=== PATIENT | male | born 1940 | race Two or more races ===

== ENCOUNTER → 2019-05-06 | Outpatient (CLI) | payer MEDICARE, OTHER ==
--- NOTE | 2019-05-09 10:06 | XCELERA REPORT ---
[address] [address] Lower Extremity Arterial Evaluation Name: LEONCIO FUNG Age: 79 yrs Gender: Male : 1940 Patient Status: Outpatient Patient Location: Study Date: 05/06/2019 02:35 PM Procedure: A color flow and duplex scan of the lower extremity arteries was performed bilaterally with velocity and waveform anaylsis. Reason For Study: RT FOOT ULCER Ordering Physician: ALLYSSA ASCENCIO Performed By: Benny Vasquez Measurements and Calculations Right Left MOLD WORKER PSV 72.7 74.6 cm/sec Prox PFA PSV -67.2 -99.8 cm/sec Prox SFA PSV 48.8 48.3 cm/sec Mid SFA PSV -48.6 -59.0 cm/sec Dist SFA PSV -53.1 -61.1 cm/sec Prox Pop A PSV 31.9 28.3 cm/sec Dist WILFREDO PSV 21.8 22.2 cm/sec Prox NURSING HOME MANAGER PSV 28.1 cm/sec Mid NURSING HOME MANAGER PSV -6.1 cm/sec Dist NURSING HOME MANAGER PSV 31.2 16.9 cm/sec Gamaliel Pedis PSV 11.0 39.0 cm/sec Right Side Arterial Evaluation Normal velocity and triphasic waveforms noted from the Common Femoral artery to the Posterior Tibial artery . Biphasic with low velocity, spectral broadening in the Anterior Tibial and Dorsalis Pedis arteries. Ankle Brachial index not requested. Left Side Arterial Evaluation Normal velocity and triphasic waveforms noted from the Common Femoral artery to the Popliteal artery . Biphasic with low velocity, spectral broadening in the Anterior Tibial and Posterior Tibial arteries. In addition, flow in the distal Posterior Tibial is reversed. No focal stenosis or obstruction is identified. Ankle Brachial index not requested. Interpretation Summary Mild hemodynamically significant lesions in the right lower extremity only, on duplex imaging, at rest. Moderate hemodynamically significant lesions in the left lower extremity only, on duplex imaging, at rest. Arterial compromise is noted in the Anterior Tibial on the right, In both Anterior and Posterior Tibial on the left. Reversal of flow in the left Posterior tibial suggests an obstruction with collateral reconstitution, although no focus of obstruction is seen. : ALLYSSA ASCENCIO > Antelmo Laguerre
== END ==
LOC: SP 13:31
PROVIDERS: ATTEND Preventive Medicine Undersea and Hyperbaric Medicine
DX: L97.512 Non-pressure chronic ulcer of other part of right foot with fat layer exposed (principal)
CPT/HCPCS: 93925

== ENCOUNTER 2020-03-30 01:14 | Emergency (ER) | payer MEDICARE, OTHER ==
[~2020-03-30 01:14] MED LIST: ETOMIDATE INJ/PF 20 MG/10 ML SDV IV ONE; SUCCINYLCHOLINE CHLORIDE INJ 200 MG/10 ML VIAL ONE
--- NOTE | 2020-03-30 01:19 | ER Document Report ---
ED General - General Chief Complaint: S/S of Possible Stroke Stated Complaint: WEAKNESS Time Seen by Provider: 03/30/20 01:17 Primary Care Provider: ALLYSSA ASCENCIO DPM [Primary Care Provider] - Follow up as needed Mode of Arrival: Medic Information source: Patient, Relative, Emergency Med Personnel TRAVEL OUTSIDE OF THE [place] IN LAST 30 DAYS: No - HPI Onset: Other - patient fell around 830pm Onset/Duration: Sudden Quality of pain: Achy Severity: Severe Pain Level: 1 Associated symptoms: Weakness - of his legs bilaterally Exacerbated by: Denies Relieved by: Denies Similar symptoms previously: No Recently seen / treated by doctor: Yes - Patient has been seen at the [facility] for trouble ambulating recently Notes: 79 year old male with a history of CHF, COPD, Dementia who is on Eliquis brought to the ER by EMS for left sided paralysis. The patient apparently fell at his house around 830pm and his son had trouble getting him up since his legs were of little use. The patient then developed left sided weakness and left sided facial droop. The patient was alert and awake on arrival but he was not moving his left side at all. I called the patient's son who told me the patient had fallen earlier in the week as well. The patient's son told me the patient has been lopez ving bilateral leg weakness for the last week causing him trouble ambulating. Past Medical History - General Information source: Patient, Relative, Emergency Med Personnel - Social History Smoking Status: Unknown if Ever Smoked Frequency of alcohol use: None Drug Abuse: None Lives with: Family Family History: Reviewed & Not Pertinent Patient has suicidal ideation: No Patient has homicidal ideation: No - Past Medical History Cardiac Medical History: Reports: Hx Atrial Fibrillation, Hx Congestive Heart Failure Pulmonary Medical History: Reports: Hx COPD Neurological Medical History: Reports: Other - Dementia Traumatic Medical History: Reports: Hx Fractures - Hip Review of Systems - Review of Systems Constitutional: Other - confusion EENT: No symptoms reported Cardiovascular: No symptoms reported Respiratory: No symptoms reported Gastrointestinal: No symptoms reported Genitourinary: No symptoms reported Male Genitourinary: No symptoms reported Musculoskeletal: No symptoms reported Skin: No symptoms reported Neurological/Psychological: Confusion, Weakness - left sided -: Yes All other systems reviewed and negative Physical Exam - Vital signs Vitals: Resp 16 07/01/20 01:27 - Notes Notes: GENERAL: Well-appearing, well-nourished and in no acute distress. HEAD: Atraumatic, normocephalic. EYES: Pupils equal round and reactive to light, extraocular movements intact, sclera anicteric, conjunctiva are normal. ENT: External ears normal, nares patent, oropharynx clear without exudates. Moist mucous membranes. NECK: Normal range of motion, supple without lymphadenopathy or JVD. LUNGS: Breath sounds clear to auscultation bilaterally and equal. No wheezes rales or rhonchi. HEART: Regular rate and rhythm without murmurs, rubs or gallops. ABDOMEN: Soft, nontender, normoactive bowel sounds. No guarding, no rebound. No masses appreciated. EXTREMITIES: Normal range of motion, no pitting or edema. No clubbing or cyanosis. NEUROLOGICAL: Left sided hemiparesis and left sided facial droop. 1-2/5 weakness in right lower extremity. Patient is alert and oriented and protecting his airway. Unable to perform NIH since he became unresponsive before a full NIH could be performed. PSYCH: Normal mood, normal affect. SKIN: Warm, Dry, normal turgor, no rashes or lesions noted. Course - Re-evaluation Re-evalutation: 03/30/20 01:55 The patient arrived to the ER with left sided hemiparesis. The patient was initially responsive on arrival and he told me fell tonight and hit his head. He told me he also fell a couple times over the last few weeks as well. The patient had a stat head CT as soon as he arrived since he was a stroke code due to not moving his left side. CT showed a large subdural hematoma with midline shift. Patient's BP was very elevated so Nicardipine Drip was started and Labetolol and Hydralazine were ordered as well with the goal to keep systolic BP below 150. The patient became unresponsive about 30 min into his ER stay. Patient immediately intubated by me once he became unresponsive. 1g of Keppra given and patient sedated with propofol. Both Eileen and PRI[facility]ANKA called for [facility] [place] since there is no Neurosurgery or Neurology care here at [facility]. 03/30/20 02:16 [facility] is unable to accept the patient due to capacity issues but [facility] was able to accept the patient. Plan is to fly patient to [facility]. Trauma Surgeon at [facility] requested 1g of TSX and 1g/kg of Mannitol (both pushes). I spoke to the patient's son Terence ([phone]) and informed him of his father's condition. Terence is the patient's POA and he tells me the patient is a full code and he would like everything possible to be done. - Vital Signs Vital signs: Temp Pulse Resp BP Pulse Ox 14 109/62 98 03/30/20 02:11 03/30/20 02:11 03/30/20 02:11 - Laboratory Result Diagrams: 03/30/20 01:27 03/30/20 01:27 Laboratory results interpreted by me: 03/30/20 03/30/20 01:27 01:27 WBC 18.0 H RDW 16.0 H Absolute Neuts (auto) 10.9 H Absolute Lymphs (auto) 5.1 H PT 15.7 H - Diagnostic Test Radiology reviewed: Image reviewed, Reports reviewed - EKG Interpretation by Me EKG shows normal: Sinus rhythm Rate: Normal Rhythm: NSR Odessa/QRS: Left axis deviation Additional EKG results interpreted by me: 03/30/20 01:43 T wave inversions V1-V6, aVR, aVL Procedures - Intubation Orotracheal Airway evaluation: Normal anatomy Medications: Etomidate, Succinylcholine Intubation method: Orotracheal Blade type: Melony Blade size: 3 Equipment used: Glidescope ETT size: 8.0 ETT secured at: Lips ETT secured at (cm): 24 Breath Sounds after Intubation: Equal End tidal CO2 confirmed: Yes Post Intubation Xray: Yes Critical Care Note - Critical Care Note Total time excluding time spent on procedures (mins): 49 Discharge - Discharge Clinical Impression: Subdural hematoma Hypertension Qualifiers: Hypertension type: unspecified Qualified Code(s): I10 - Essential (primary) hypertension Condition: Critical Disposition: [facility] Admitting Provider: Dr. Rand Referrals: ALLYSSA ASCENCIO, OLIVIA [Primary Care Provider] - Follow up as needed
[2020-03-30] MEDS ORDERED: NICARDIPINE HCL RTU, ISO-OS 20 MG/200 ML RTUINJ IV PRN (01:22)
[2020-03-30] MEDS ORDERED: NICARDIPINE HCL RTU, ISO-OS 20 MG/200 ML RTUINJ IV ONE (01:30)
[2020-03-30] MEDS ORDERED: HYDRALAZINE HCL INJ/PF 20 MG/1 ML SDV IV ONE (01:32)
[2020-03-30] MEDS ORDERED: LABETALOL HCL INJ 20 MG/4 ML DISP.SYRIN IV ONE ×2 (01:35→01:36)
[2020-03-30] MEDS ORDERED: HYDRALAZINE HCL INJ/PF 20 MG/1 ML SDV ONE (01:35)
[2020-03-30] MEDS ORDERED: LEVETIRACETAM 1000 MG/NACL-ISO 1,000 MG/100 ML RTUPB IV ONE ×2 (01:38→01:39)
[2020-03-30 01:47] LABS: ABSOLUTE BASOPHILS # (AUTO) 0.1 10^3/uL (0.0-0.2); ABSOLUTE EOSINOPHILS # (AUTO) 0.4 10^3/uL (0.0-0.6); ABSOLUTE LYMPHOCYTES (AUTO) 5.1 10^3/uL (0.5-4.7); ABSOLUTE MONOCYTES (AUTO) 1.3 10^3/uL (0.1-1.4); ABSOLUTE NEUT (AUTO) 10.9 10^3/uL (1.7-8.2); BASOPHILS % (AUTO) 0.7 % (0-2); EOSINOPHILS % (AUTO) 2.4 % (0-6); HEMATOCRIT 42.9 % (37.9-51.0); HEMOGLOBIN 14.6 g/dL (13.5-17.0); LYMPHOCYTES % (AUTO) 28.7 % (13-45); MEAN CORPUSCULAR HEMOGLOBIN 29.5 pg (27.0-33.4); MEAN CORPUSCULAR VOLUME 87 fl (80-97); MONOCYTES % (AUTO) 7.3 % (3-13); PLATELET COUNT 278 10^3/uL (150-450); RED BLOOD COUNT 4.94 10^6/uL (4.35-5.55); SEGMENTED NEUTROPHILS % (AUTO) 60.9 % (42-78); TOTAL CELLS COUNTED % (AUTO) 100 %
--- NOTE | 2020-03-30 01:48 | RADIOLOGY REPORT (SQ) ---
INDICATION: s/s stroke. COMPARISON: None CORRELATION: None TECHNIQUE: Noncontrast spiral axial CT images were obtained from the skull base to vertex. This exam was performed according to our departmental dose-optimization program, which includes automated exposure control, adjustment of the mA and/or kV according to patient size and/or use of iterative reconstruction techniques. FINDINGS: A large area of extra-axial hemorrhage is identified right parietal. This is within the subdural space which is maximum thickness of approximately 2.5 cm. There is significant regional mass effect with sulcal effacement. There is significant [id number] subfalcine shift of approximately 1.3 cm. There is effacement of the right lateral ventricle.. Johnson-white differentiation is normal. No intraparenchymal hemorrhage is appreciated.. . The visualized paranasal sinuses are grossly clear. The orbits and eyeballs are unremarkable. The mastoid air cells are clear. Skull base and calvarium appear intact. IMPRESSION: Large acute right parietal subdural hematoma.. Significant mass effect with 1.3 cm of [id number] subfalcine shift. No intraparenchymal hemorrhage.
[2020-03-30 01:51] LABS: INTERNATIONAL RATION (INR) 1.24; PARTIAL THROMBOPLASTIN TIME 24.7 SEC (23.5-35.8); PROTHROMBIN TIME 15.7 SEC (11.4-15.4)
[2020-03-30] MEDS ORDERED: FENTANYL CITRATE INJ/PF 100 MCG/2 ML AMPUL IV ONE (02:02)
[2020-03-30] MEDS ORDERED: PROPOFOL INJ 200 MG/20 ML VIAL IV ONE (02:02)
[2020-03-30] MEDS ORDERED: PROPOFOL 1,000 MG/100 ML INFUS..BTL IV PRN (02:04)
--- NOTE | 2020-03-30 02:04 | RADIOLOGY REPORT (SQ) ---
CLINICAL INDICATION: s/s stroke. TECHNIQUE: A single portable AP view was obtained of the chest at 0131 hours. COMPARISON: None. FINDINGS: The cardiomediastinal silhouette is enlarged with LVH configuration. Tortuous thoracic aorta. The lungs are grossly clear. No evidence of effusion or pneumothorax. The visualized bones are unremarkable. Chronic parenchymal lung change. IMPRESSION: No evidence of active intrathoracic disease.
[2020-03-30] MEDS ORDERED: MANNITOL 500 ML IV ONE ×2 (02:06→02:18)
[2020-03-30] MEDS ORDERED: TRANEXAMIC ACID INJ/PF 1,000 MG/10 ML SDV IV ONE (02:10)
[2020-03-30] MEDS ORDERED: TRANEXAMIC ACID INJ/PF 1,000 MG/10 ML SDV ONE (02:11)
[2020-03-30 02:17] LABS: CREATINE KINASE MB 1.34 ng/mL (<4.55)
[2020-03-30 02:26] LABS: TROPONIN I < 0.012 ng/mL
--- NOTE | 2020-03-30 02:28 | EKG REPORT ---
SEVERITY:- ABNORMAL ECG - SINUS RHYTHM FIRST DEGREE AV BLOCK NONSPECIFIC IVCD WITH LAD PROBABLE INFERIOR INFARCT, OLD : Confirmed by: Deb Marti MD 30-Mar-2020 02:27:30
--- NOTE | 2020-03-30 02:35 | RADIOLOGY REPORT (SQ) ---
CHEST 1 VIEW on 03/30/2020 at 2:11 AM CLINICAL INDICATION: Intubated COMPARISON: 03/30/2020 at 1:31 AM FINDINGS: New ET tube tip is in the midthoracic trachea approximately 5.7 cm above the level of the suzanne. NG tube extends below the diaphragm and below the level of this film. Multiple wires are noted projecting over the chest. Vascular calcification is noted in the aorta. Heart is upper limits normal for size. The lungs are clear. Old bilateral rib fractures are noted. Pulmonary vascularity is within normal limits. IMPRESSION: ET tube and NG tube in good position with otherwise no significant change.
[2020-03-30] MEDS ORDERED: MANNITOL IV ONE (02:41)
[2020-03-30 02:49] LABS: ALBUMIN 3.9 g/dL (3.5-5.0); ALKALINE PHOSPHATASE 110 U/L (38-126); ANION GAP 6 (5-19); ASPARTATE AMINO TRANSFERASE 31 U/L (17-59); BILIRUBIN,DIRECT 0.1 mg/dL (0.0-0.4); BILIRUBIN,TOTAL 0.7 mg/dL (0.2-1.3); BLOOD UREA NITROGEN 36 mg/dL (7-20); CARBON DIOXIDE 23 mmol/L (22-30); CHLORIDE 110 mmol/L (98-107); CREATINE KINASE 67 U/L (55-170); GLUCOSE 252 mg/dL (75-110); TOTAL PROTEIN 7.3 g/dL (6.3-8.2)
[2020-03-30 04:28] VITALS: BP 98/50
== END 2020-03-30 03:10 | disposition short-term general hospital (02) ==
LOC: ER 01:14
DX: I62.00 Nontraumatic subdural hemorrhage, unspecified (principal); G81.94 Hemiplegia, unspecified affecting left nondominant side; I11.0 Hypertensive heart disease with heart failure; I50.9 Heart failure, unspecified; J44.9 Chronic obstructive pulmonary disease, unspecified; F03.90 Unspecified dementia, unspecified severity, without behavioral disturbance, psychotic disturbance, mood disturbance, and anxiety; Z79.02 Long term (current) use of antithrombotics/antiplatelets; Z91.81 History of falling
CPT/HCPCS: 93005; 99291; 96375; 96365; 96367; 36415; 82553; 82962; 82550; 85025; 85610; 85730; 80053; 84484; 71045; 70450; 94660; 93010; 31500; J3010; J2704; J0360; J3490 ×4; J0330; J2150; J1953